=== PATIENT | female | born 2000 | race Caucasian/White ===

== ENCOUNTER 2022-06-11 00:52 | Inpatient (IN) | payer BC, OTHER ==
[2022-06-11] MEDS ORDERED: Nalbuphine HCl 10 MG/ 1ML Amp IVPUSH PRN (01:14)
[2022-06-11] MEDS ORDERED: Ondansetron 4 MG/2 ML SDV IVPUSH PRN ×2 (01:14→10:00)
[2022-06-11] MEDS ORDERED: Calcium Carbonate 500 MG Tab.Chew PO PRN (01:14)
[2022-06-11] MEDS ORDERED: Lidocaine 1% 50 ML MDV INJECT PRN (01:14)
[2022-06-11] MEDS ORDERED: Ampicillin 2 GM in Sodium Chloride 0.9% 100 ML IV ONE (01:14)
[2022-06-11] MEDS ORDERED: Oxytocin/Lactated Ringers 10 UNIT/1,000 ML BAG IV SCH ×3 (01:15→11:45)
[2022-06-11] MEDS: Lactated Ringers 1,000 ML IV SCH ×2 (01:34→07:56)
[2022-06-11] MEDS: Ampicillin 1 GM in Sodium Chloride 0.9% 100 ML IV SCH ×2 (05:03→19:49)
[2022-06-11] MEDS ORDERED: Terbutaline 1 MG/ML SDV ONE (09:07)
[2022-06-11] MEDS ORDERED: Sodium Chloride 0.9% 1,000 ML IV SCH ×2 (09:10→20:00)
[2022-06-11] MEDS ORDERED: Oxytocin 10 Units/1 ML SDV ONE (09:13)
[2022-06-11] MEDS ORDERED: Morphine PF 10 MG/10 ML SDV ONE (09:13)
[2022-06-11] MEDS ORDERED: Ondansetron 4 MG/2 ML SDV ONE (09:13)
[2022-06-11] MEDS ORDERED: Ketorolac 30 MG/ML SDV ONE (09:13)
[2022-06-11] MEDS ORDERED: Lactated Ringers 2,000 ML ONE (09:13)
[2022-06-11] MEDS ORDERED: Bupivacaine 0.5% 30 ML SDV ONE (09:17)
[2022-06-11] MEDS ORDERED: ceFAZolin 2 GM Vial ONE (09:17)
[2022-06-11] MEDS ORDERED: Metoclopramide 10 MG/2 ML SDV IVPUSH ONE (09:30)
[2022-06-11] MEDS ORDERED: Citric Acid/Sodium Citrate Solution 30 ML Cup PO ONE (09:30)
[2022-06-11] MEDS ORDERED: Azithromycin 500 MG in Sodium Chloride 0.9% 250 ML IV ONE (09:30)
[2022-06-11] MEDS ORDERED: Phenylephrine HCl In 0.9% NaCl 1 MG/10 ML Vial ONE (09:42)
[2022-06-11] MEDS ORDERED: Meperidine 50 MG/ML Vial ONE (09:58)
[2022-06-11] MEDS ORDERED: Meperidine 50 MG/ML Vial IVPUSH PRN (10:00)
[2022-06-11] MEDS ORDERED: diphenhydrAMINE 50 MG/ML SDV IVPUSH PRN ×2 (10:00→11:45)
[2022-06-11] MEDS ORDERED: fentaNYL 100 MCG/2 ML SDV IVPUSH PRN (10:00)
[2022-06-11] MEDS ORDERED: Dextrose 5%-Lactated Ringers 1,000 ML IV SCH (11:45)
[2022-06-11] MEDS ORDERED: Magnesium Hydroxide 400 MG/5 ML Susp 30 ML Cup PO PRN (11:45)
[2022-06-11] MEDS ORDERED: ePHEDrine 50 MG/ML SDV IVPUSH PRN (11:45)
[2022-06-11] MEDS ORDERED: Naloxone 0.4 MG/ML SDV IVPUSH PRN (11:45)
[2022-06-11] MEDS ORDERED: Measles, Mumps & Rubella Vaccine 0.5 ML SDV SUBCUT ONE (11:45)
[2022-06-11] MEDS ORDERED: Sodium Chloride 0.9% 500 ML IV ONE (13:13)
[2022-06-11] MEDS: Ketorolac 30 MG/ML SDV IVPUSH SCH ×2 (16:30→21:57)
[2022-06-11] MEDS: Docusate Sodium 100 MG Cap PO SCH (21:57)
[2022-06-12] MEDS: Ketorolac 30 MG/ML SDV IVPUSH SCH (04:09)
[2022-06-12] MEDS: Acetaminophen/oxyCODONE 325-5 MG Tab PO PRN ×4 (06:29→23:14)
[2022-06-12] MEDS: Ibuprofen 600 MG Tab PO PRN ×2 (10:38→17:14)
[2022-06-12] MEDS: Docusate Sodium 100 MG Cap PO SCH ×2 (10:38→21:13)
[2022-06-12] MEDS: Prenatal Multivitamin with Calcium/Folic Acid/Iron Tab PO SCH (10:39)
[2022-06-13] MEDS: Acetaminophen/oxyCODONE 325-5 MG Tab PO PRN ×2 (00:20→05:36)
[2022-06-13] MEDS: Ibuprofen 600 MG Tab PO PRN (03:20)
[2022-06-13] MEDS: Docusate Sodium 100 MG Cap PO SCH (08:02)
[2022-06-13] MEDS: Prenatal Multivitamin with Calcium/Folic Acid/Iron Tab PO SCH (09:48)
== END 2022-06-13 10:40 | disposition home or self-care (01) | DRG 540 ==
LOC: JD.OBCHECK 00:52 → JD.OB 00:55 → JD.OBCHECK 01:15 → OBSVTOIN 01:16 → JD.OB 01:16
PROVIDERS: ADMIT Obstetrics & Gynecology; ATTEND Obstetrics & Gynecology
PROC: 10D00Z1 Extraction of Products of Conception, Low, Open Approach (ICD-10-PCS; principal; 2022-06-11)
PROC: 10H07YZ Insertion of Other Device into Products of Conception, Via Natural or Artificial Opening (ICD-10-PCS; 2022-06-11)
PROC: 10907ZC Drainage of Amniotic Fluid, Therapeutic from Products of Conception, Via Natural or Artificial Opening (ICD-10-PCS; 2022-06-11)
PROC: 3E0234Z Introduction of Serum, Toxoid and Vaccine into Muscle, Percutaneous Approach (ICD-10-PCS; 2022-06-13)
DX: O99.824 Streptococcus B carrier state complicating childbirth (principal); Z37.0 Single live birth; O77.0 Labor and delivery complicated by meconium in amniotic fluid; O67.9 Intrapartum hemorrhage, unspecified; O99.02 Anemia complicating childbirth; D62 Acute posthemorrhagic anemia; O76 Abnormality in fetal heart rate and rhythm complicating labor and delivery; Z3A.39 39 weeks gestation of pregnancy; Z23 Encounter for immunization
CPT/HCPCS: 01961; 36415; 36430; 59025; 85025; 85027; 86592; 86850; 86900; 86901; 86922; 90471; 90707; 94762; 99140; A9270-GY; J0290; J0456; J0690; J1885; J2175; J2274; J2300; J2405; J2590; J2765; J3105; J3490; J7030; J7050; J7120; J7121; P9016

== ENCOUNTER 2024-09-27 20:36 | Inpatient (IN) | payer BC ==
[~2024-09-27 20:36] MED LIST: Bupivacaine 0.25% 10 ML SDV ONE; Sodium Chloride 0.9% 10 ML SDV ONE
[2024-09-27] MEDS ORDERED: Lidocaine 1% 50 ML MDV INJECT PRN (23:34)
[2024-09-27] MEDS ORDERED: Ondansetron 4 MG/2 ML SDV IVPUSH PRN (23:34)
[2024-09-27] MEDS ORDERED: Nalbuphine 10 MG/1 ML Vial IVPUSH PRN (23:34)
[2024-09-27] MEDS ORDERED: Oxytocin/0.9 % Sodium Chloride 30 UNIT/500 ML BAG IV SCH (23:45)
[2024-09-27 23:52] LABS: BASOPHILS PERCENT AUTO 0.2 % (0.0-1.0); EOSINOPHILS ABSOLUTE AUTO 0.1 K/mm3 (0.0-0.4); EOSINOPHILS PERCENT AUTO 0.5 % (0.0-6.0); HEMATOCRIT 35.9 % (37.0-47.0); HEMOGLOBIN 11.2 gm/dl (12.0-16.0); IMMATURE GRAN ABSOLUTE AUTO 0.04 K/mm3 (0.00-0.05); IMMATURE GRAN PERCENT AUTO 0.4 % (0.0-0.4); LYMPHOCYTES ABSOLUTE AUTO 2.4 K/mm3 (1.0-4.8); LYMPHOCYTES PERCENT AUTO 21.4 % (24.0-44.0); MEAN CORPUSCULAR HEMOGLOBIN 25.4 pg (28.0-32.0); MEAN CORPUSCULAR HGB CONC 31.2 g/dl (32.0-36.0); MEAN CORPUSCULAR VOLUME 81.4 fl (83.0-99.0); MONOCYTES ABSOLUTE AUTO 0.9 K/mm3 (0.0-0.8); MONOCYTES PERCENT AUTO 7.8 % (0.0-8.0); NEUTROPHILS ABSOLUTE AUTO 7.8 K/mm3 (1.8-7.7); NEUTROPHILS PERCENT AUTO 69.7 % (41.0-71.0); PLATELET COUNT,PLT 262 K/mm3 (150-400); RED BLOOD CELL COUNT 4.41 M/mm3 (4.10-5.30); WHITE BLOOD CELL COUNT,WBC 11.11 K/mm3 (3.9-11.3)
[2024-09-28] MEDS: Ampicillin 2 GM in Sodium Chloride 0.9% 100 ML IV ONE (00:04)
[2024-09-28] MEDS: Lactated Ringers 1,000 ML IV SCH (00:04)
[2024-09-28] MEDS: Ampicillin 1 GM in Sodium Chloride 0.9% 100 ML IV SCH (04:03)
[2024-09-28] MEDS ORDERED: diphenhydrAMINE 50 MG/ML SDV IVPUSH PRN ×3 (08:05→21:53)
[2024-09-28] MEDS ORDERED: ePHEDrine 50 MG/ML SDV IVPUSH PRN ×2 (08:05→21:53)
[2024-09-28] MEDS: fentaNYL 100 MCG/2 ML SDV EPIDUR PRN (08:20)
[2024-09-28] MEDS: Bupivacaine/fentaNYL/NS 100 ML Bag EPIDUR PRN (08:21)
[2024-09-28] MEDS: Oxytocin/0.9 % Sodium Chloride 30 UNIT/500 ML BAG IV SCH (13:00)
[2024-09-28] MEDS: fentaNYL 100 MCG/2 ML SDV EPIDUR ONE (15:36)
[2024-09-28] MEDS: Terbutaline 1 MG/ML SDV ONE (19:03)
[2024-09-28] MEDS ORDERED: Citric Acid/Sodium Citrate Solution 30 ML Cup PO ONE (19:06)
[2024-09-28] MEDS ORDERED: Sodium Chloride 0.9% 10 ML Syringe FLUSH PRN (19:06)
[2024-09-28] MEDS ORDERED: Sodium Chloride 0.9% 500 ML ONE (19:06)
[2024-09-28] MEDS ORDERED: ceFAZolin 2 GM in Sodium Chloride 0.9% 50 ML IV ONE (19:06)
[2024-09-28] MEDS ORDERED: Metoclopramide 10 MG/2 ML SDV IVPUSH ONE (19:06)
[2024-09-28] MEDS: Citric Acid/Sodium Citrate Solution 30 ML Cup ONE (19:07)
[2024-09-28] MEDS: Azithromycin 500 MG Vial ONE (19:07)
[2024-09-28] MEDS: Metoclopramide 10 MG/2 ML SDV ONE (19:07)
[2024-09-28] MEDS ORDERED: Lactated Ringers 1,000 ML IV SCH (19:15)
[2024-09-28] MEDS ORDERED: Morphine PF 10 MG/10 ML SDV ONE (19:16)
[2024-09-28] MEDS ORDERED: Lidocaine 2% with EPINEPHrine 1:200,000 20 ML SDV ONE (19:19)
[2024-09-28] MEDS ORDERED: Sodium Bicarbonate 8.4% 50 MEQ/50 ML SDV ONE (19:19)
[2024-09-28] MEDS ORDERED: Metoclopramide 10 MG/2 ML SDV ONE (19:19)
[2024-09-28] MEDS ORDERED: Ondansetron 4 MG/2 ML SDV ONE ×2 (19:19→19:27)
[2024-09-28] MEDS ORDERED: Ketorolac 30 MG/ML SDV ONE (19:19)
[2024-09-28] MEDS ORDERED: ceFAZolin 2 GM Vial IVPUSH ONE (19:30)
[2024-09-28] MEDS ORDERED: Ondansetron 4 MG/2 ML SDV IVPUSH PRN (19:51)
[2024-09-28] MEDS ORDERED: fentaNYL 100 MCG/2 ML SDV IVPUSH PRN (19:51)
[2024-09-28] MEDS ORDERED: Meperidine 50 MG/ML Vial IVPUSH PRN (19:51)
[2024-09-28] MEDS ORDERED: Sodium Chloride 0.9% 10 ML Syringe FLUSH SCH (21:00)
[2024-09-28] MEDS ORDERED: Oxytocin/0.9 % Sodium Chloride 30 UNIT/500 ML BAG IV SCH (21:53)
[2024-09-28] MEDS ORDERED: Naloxone 0.4 MG/ML SDV IVPUSH PRN (21:53)
[2024-09-28] MEDS ORDERED: Magnesium Hydroxide 400 MG/5 ML Susp 30 ML Cup PO PRN (21:53)
[2024-09-28] MEDS ORDERED: Acetaminophen/oxyCODONE 325-5 MG Tab PO PRN (21:53)
[2024-09-28] MEDS: Dextrose 5%-Lactated Ringers 1,000 ML IV SCH (22:20)
[2024-09-29] MEDS: Ketorolac 30 MG/ML SDV IVPUSH SCH (02:15)
[2024-09-29] MEDS: Ondansetron 4 MG Tab.DIS PO PRN (02:32)
[2024-09-29 05:35] LABS: HEMATOCRIT 28.4 % (37.0-47.0); MEAN CORPUSCULAR HEMOGLOBIN 25.7 pg (28.0-32.0); MEAN CORPUSCULAR VOLUME 82.8 fl (83.0-99.0); MEAN PLATELET VOLUME 11.2 fl (9.4-12.3); PLATELET COUNT,PLT 214 K/mm3 (150-400); RED BLOOD CELL COUNT 3.43 M/mm3 (4.10-5.30); WHITE BLOOD CELL COUNT,WBC 12.15 K/mm3 (3.9-11.3)
[2024-09-29 05:46] LABS: HEMOGLOBIN 8.8 gm/dl (12.0-16.0)
[2024-09-29] MEDS: Simethicone 80 MG Tab.Chew PO SCH (09:14)
[2024-09-29] MEDS: Docusate Sodium 100 MG Cap PO SCH (09:14)
[2024-09-29] MEDS: Prenatal Multivitamin with Calcium/Folic Acid/Iron Tab PO SCH (09:17)
[2024-09-29] MEDS: Acetaminophen/oxyCODONE 325-5 MG Tab PO PRN ×2 (16:27→22:06)
[2024-09-29 16:39] LABS: HEMATOCRIT 26.7 % (37.0-47.0); HEMOGLOBIN 8.3 gm/dl (12.0-16.0); MEAN CORPUSCULAR HEMOGLOBIN 25.8 pg (28.0-32.0); MEAN CORPUSCULAR HGB CONC 31.1 g/dl (32.0-36.0); MEAN CORPUSCULAR VOLUME 82.9 fl (83.0-99.0); PLATELET COUNT,PLT 198 K/mm3 (150-400); RED BLOOD CELL COUNT 3.22 M/mm3 (4.10-5.30)
[2024-09-29] MEDS: Ferrous Sulfate 324 MG Tab.EC PO SCH (17:09)
[2024-09-29] MEDS ORDERED: FLU (Flulaval Triv) 24-25(6MOS UP)/PF 45 MCG/0.5 ML Syringe IM ONE (18:00)
[2024-09-29] MEDS: oxyCODONE 5 MG Tab PO ONE (20:13)
[2024-09-29] MEDS: Ibuprofen 600 MG Tab PO SCH (21:15)
[2024-09-30] MEDS: Acetaminophen/oxyCODONE 325-5 MG Tab PO PRN (01:56)
[2024-09-30] MEDS ORDERED: FLU (Fluad Triv) TS24-25 (65UP)/MF59C/PF 45 MCG/0.5 ML Syringe IM ONE (08:00)
[2024-09-30] MEDS: FLU (Flulaval Triv) 24-25(6MOS UP)/PF 45 MCG/0.5 ML Syringe IM ONE (13:47)
== END 2024-09-30 12:30 | disposition home or self-care (01) | DRG 540 ==
LOC: JD.OBCHECK 20:36 → JD.OB 21:03 → UNDOADMOB 21:11 → JD.OB 21:11 → OBSVTOIN 09-28 19:32 → JD.OB 09-28 19:33
PROVIDERS: ADMIT Obstetrics & Gynecology; ATTEND Obstetrics & Gynecology
PROC: 3E0R3BZ Introduction of Anesthetic Agent into Spinal Canal, Percutaneous Approach (ICD-10-PCS; 2024-09-28)
PROC: 00HU33Z Insertion of Infusion Device into Spinal Canal, Percutaneous Approach (ICD-10-PCS; 2024-09-28)
PROC: 10D00Z1 Extraction of Products of Conception, Low, Open Approach (ICD-10-PCS; principal; 2024-09-28 19:00)
DX: O34.211 Maternal care for low transverse scar from previous cesarean delivery (principal); O48.0 Post-term pregnancy; O99.824 Streptococcus B carrier state complicating childbirth; O76 Abnormality in fetal heart rate and rhythm complicating labor and delivery; Z3A.40 40 weeks gestation of pregnancy; Z37.0 Single live birth; Z86.16 Personal history of COVID-19; Z90.89 Acquired absence of other organs
CPT/HCPCS: 36415; 51702; 59025; 85025; 85027; 86592; 86850; 86900; 86901; 94762; A9270-GY; J0290; J0456; J0665; J1885; J2274; J2405; J2765; J3010; J3105; J3490; J7120; J7121; J7999